=== PATIENT | male | born 1945 | race Caucasian/White ===

== ENCOUNTER → 2018-04-22 | Outpatient (CLI) | payer MEDICARE ==
[~2018-04-22] MED LIST: IOHEXOL 180 MG/ML 10 ML VIAL. IT ONE; LIDOCAINE WITH 8.4% SOD BICARB 3 ML DISP.SYRIN. INJ ONE
[2018-04-22 11:20] VITALS: BP 149/69
--- NOTE | 2018-04-22 12:30 | RAD ---
Lumbar myelogram, 04/22/2018: History: Low back pain, knee pain Under local anesthesia, aseptic conditions and fluoroscopic guidance a lumbar puncture was performed at the upper L4 level utilizing a 25-gauge Trish spinal needle. Good clear CSF flow was obtained following which 14 cc of Omnipaque 180 was injected into the thecal sac. The spinal needle was then removed and hemostasis obtained. Appropriate digital imaging was then performed. 4.8 minutes of fluoroscopy time was utilized. 16 fluoroscopic spot images were recorded. The following findings are delineated: 1. There is a mild left convexity lumbar scoliosis. 2. There is moderate circumferential narrowing of the thecal sac at L3-4. 3. There are mild anterior and posterior extradural defects at L2-3 and a mild anterior extradural defect at L4-5. 4. There is decreased opacification of the L4 nerve root sleeves bilaterally. 5. Upright lateral flexion and extension views demonstrate no spondylolisthesis or instability. CT of the lumbar spine-post myelogram, 04/22/2018: Multidetector CT imaging was performed with multiplanar reconstructions produced. The following findings are delineated: 1. At L1-2 there are mild degenerative changes involving the facet joints. There is mild posterior disc bulging and spurring. The central spinal canal is well maintained. There is mild inferior foraminal narrowing bilaterally. 2. At L2-3 there is moderate facet joint arthropathy. There is mild posterior disc bulging and marginal spurring. The thecal sac measures 12 mm in AP diameter at the midline. There is mild inferior foraminal narrowing, more so on the right. 3. At L3-4 there are extensive hypertrophic degenerative changes involving the facet joints with moderate posterior ligamentous thickening. There is moderate posterior marginal spurring which is most prominent at the midline. There is moderate broad-based posterior disc bulging. The combination of findings is causing moderate central spinal stenosis in a triangular configuration. The thecal sac measures 8 mm in AP diameter at the midline at the disc level. There is mild to moderate bilateral foraminal narrowing. 4. At L4-5 there are also extensive hypertrophic degenerative changes involving the facet joints. There is moderate posterior ligamentous thickening more so on the right. There is mild posterior disc bulging and posterior marginal spurring which is most prominent on the left. The spurring is causing moderate left foraminal encroachment and mild right foraminal encroachment. The central spinal canal is not significantly stenotic. 5. At L5-S1 there is moderate bilateral facet joint arthropathy. There is mild posterior disc bulging and marginal spurring. The posterior spurring is more prominent on the left which in conjunction with facet spurring is causing moderate left foraminal stenosis. The central spinal canal is not significantly stenotic. 6. A small 12 mm cystic appearing structure is seen in the posterior aspect of the sacral spinal canal at the S1-2 level. This does not opacify with the intrathecal contrast. This is probably a small arachnoid cyst or noncommunicating perineural root sleeve cyst. IMPRESSION: 1. Lumbar scoliosis with moderate multilevel degenerative change as described above. 2. Moderate central spinal stenosis at L3-4 due to a combination of facet joint arthropathy with posterior ligamentous thickening, disc bulging and spurring. 3. Mild to moderate foraminal narrowing at several levels, worst at L4-5 and L5-S1 on the left. PQRS Compliance Statement: One or more of the following individualized dose reduction techniques were utilized for this examination: 1. Automated exposure control 2. Adjustment of the mA and/or kV according to patient size 3. Use of iterative reconstruction technique
== END | disposition home or self-care (01) ==
LOC: RAD 10:21
PROVIDERS: ATTEND Neurological Surgery
DX: M48.061 Spinal stenosis, lumbar region without neurogenic claudication (principal); M41.86 Other forms of scoliosis, lumbar region; M48.07 Spinal stenosis, lumbosacral region; M12.88 Other specific arthropathies, not elsewhere classified, other specified site; I10 Essential (primary) hypertension; E11.9 Type 2 diabetes mellitus without complications
CPT/HCPCS: 72132; 72265; Q9965

== ENCOUNTER → 2018-05-10 | Outpatient (CLI) | payer MEDICARE ==
[2018-04-22 11:20] VITALS: BP 149/69
[~2018-05-10] MED LIST changes: +ACET325T9 PO; +ASPI81TA50 PO; +ATORVASTATIN CA80 MG PO; +DICL50TA2 PO; +GLIM1TAB2 PO; +GLIM2TAB2 PO; +HYDR-3135 PO; +HYDR25TA PO; -IOHEXOL 180 MG/ML 10 ML VIAL. IT ONE; +LEVO75TA5 PO; -LIDOCAINE WITH 8.4% SOD BICARB 3 ML DISP.SYRIN. INJ ONE; +LISI-334 PO; +LUTE20TA PO; +MELA3TAB2 PO; +METF10007 PO; +MULT1TAB52 PO; +ROPI1TAB PO; +TAMS0.4C2 PO
--- NOTE | 2018-05-10 13:52 | EKG ---
[facility] [address] [place] [address] Test Date: 2018-05-10 Test Time: 14:00:22 Pat Name: ZULEYMA LINDSAY Department: Room: Gender: Insurance Service Representative: [facility] : 1945 Requested By: GRISELDA SILVA Order Number: [id number] Reading MD: Gurmeet Jacob MD Measurements Intervals [place] Rate: 88 P: 31 NE: 176 QRS: -37 QRSD: 90 T: 4 QT: 336 QTc: 410 Interpretive Statements SINUS RHYTHM NON-SPECIFIC ST/T CHANGES Electronically Signed On 05-10-2018 14:35:15 APPLICATIONS TRAINER by Gurmeet Jacob MD
[2018-05-10 15:17] LABS: BASO % 1 % (0-3); EOS # 0.2 x10^3/uL (0.0-0.7); EOS % 3 % (0-3); HEMATOCRIT 40.6 % (39.0-53.0); HEMOGLOBIN 13.9 g/dL (13.0-17.5); LYMPH # 1.7 x10^3/uL (1.0-4.8); LYMPH % 21 % (24-48); MEAN CORPUSCULAR HEMOGLOBIN 32 pg (25-35); MEAN CORPUSCULAR HGB CONC 34 g/dL (31-37); MEAN CORPUSCULAR VOLUME 94 fL (79-100); MONO # 0.6 x10^3/uL (0.0-1.1); MONO % 8 % (0-9); NEUT # 5.6 x10^3uL (1.8-7.7); NEUT % 68 % (31-73); PLATELET COUNT 270 x10^3/uL (140-400); RED BLOOD COUNT 4.33 x10^6/uL (4.30-5.70); RED CELL DISTRIBUTION WIDTH 13.9 % (11.5-14.5); WHITE BLOOD COUNT 8.3 x10^3/uL (4.0-11.0)
[2018-05-10 15:52] LABS: ALBUMIN 3.7 g/dL (3.4-5.0); ALBUMIN/GLOBULIN RATIO 0.9 (1.0-1.7); CALCIUM 9.6 mg/dL (8.5-10.1); CREATININE 0.9 mg/dL (0.7-1.3); GFR 83.4; POTASSIUM 4.2 mmol/L (3.5-5.1); TOTAL BILIRUBIN 0.2 mg/dL (0.2-1.0); TOTAL PROTEIN 7.6 g/dL (6.4-8.2)
[2018-05-11 02:16] LABS: HEMOGLOBIN A1C 6.7 % (4.8-5.6)
== END | disposition home or self-care (01) ==
LOC: SURGPAT 12:43
PROVIDERS: ATTEND Neurological Surgery
DX: Z01.818 Encounter for other preprocedural examination (principal); M48.062 Spinal stenosis, lumbar region with neurogenic claudication
CPT/HCPCS: 36415; 80053; 83036; 85025; 87641; 93005

== ENCOUNTER 2018-05-20 07:13 | Observation (INO) | payer MEDICARE ==
[2018-05-20] VITALS (10 sets, daily range): BP systolic 108–120; BP diastolic 52–68
[~2018-05-20] VITALS: Ht 170.2 cm; Wt 111.7 kg
--- NOTE | 2018-05-20 07:07 | PREOP HP ---
DATE OF SERVICE: 05/20/2018 DATE OF SURGERY: 05/20/2018 HISTORY OF PRESENT ILLNESS: He is a pleasant 72-year-old who has low back and left greater than right leg pain, which radiates to the thighs and knees. The problem has been present for a year. The more active he becomes the more his pain increases. He rates his pain as a 4/10. Standing increases his pain. Sitting helps. He takes diclofenac, which he says does help him. PAST MEDICAL HISTORY: Hypertension, diverticulosis, metabolic syndrome, arthritis. PAST SURGICAL HISTORY: Tonsillectomy in 3, appendectomy in 1961, mandibular resection in 1966, nasal polyp removal in 1981, tennis elbow procedure in 1983, prostate resection in 2002, sigmoid colon resection in 2003, Hallie fundoplication in 2010, laminectomy L4-L5 in 07/2012, left total knee in 02/2016, right total knee in 04/2016. FAMILY HISTORY: Cancer, heart disease and spine problems. SOCIAL HISTORY: The patient is retired, and has 2 children. He exercises daily by walking. He has no current or past history of smoking. He consumes alcohol 1-2 times per year. ALLERGIES: BANDAGE DRESSINGS AND VOLTAREN. CURRENT MEDICATIONS: Lisinopril, simvastatin, levothyroxine, Krill oil, vitamin B12, vitamin C, vitamin D, aspirin, potassium gluconate, L-glutamine, multivitamins, Tylenol, [place], metformin, metronidazole, ibuprofen, and diclofenac. REVIEW OF SYSTEMS: A 12-point review of systems was obtained and is noncontributory except that mentioned above. PHYSICAL EXAMINATION: NEUROSURGERY EXAMINATION: GENERAL APPEARANCE: Alert, pleasant, no acute distress. HEAD: Normocephalic, atraumatic. SKIN: Warm and dry. MUSCULOSKELETAL: Lumbar paraspinal muscle bulk is normal, restricted range of motion of the lumbar spine, ohwy-yc-eovivdeg tenderness of lower lumbar spine with palpation, normal range of motion of the lower extremities bilaterally. EXTREMITIES: No clubbing, cyanosis or edema. NEUROLOGIC: Alert and oriented x 3, normal recent and remote memory, strength 5/5 in bilateral lower extremities, sensory was intact to light touch in the lower extremities bilaterally, reflexes were absent at the knees and ankles. Negative straight leg raising bilaterally, normal gait. IMAGING: I reviewed a lumbar myelogram and post-myelogram CT scan. On that study, there are abnormalities that are largely centered at L3-L4. There is lumbar spinal stenosis at L3-L4, which appears to worsen when compared to previous study. This stenosis at this level appears to be due to hypertrophic facets and thickened ligamentum flavum. ASSESSMENT/ PLAN: The patient is developing increasing low back pain along with pain, which radiates into his thighs and knees. I suspect the problem is related to the stenosis at L3-L4. I recommended bilateral lumbar microdecompressive surgery at this level. I discussed with him the surgery and the risks involved. He understands. He would like to go ahead. We will make the arrangements. GRISELDA SILVA MD DR: NIKKO/fitz JOB#: [id number] / [id number] ANDREW
[~2018-05-20 07:13] MED LIST changes: +BUPIVAC MPF-EPI 0.5%-1:200000 30 ML VIAL. ONE; +GELATIN SPONGE SIZE 100. ONE; +IV RINGERS,LACTATED 1000ML 1,000 ML IV SCH; +KETOROLAC 60 MG/2 ML INJ FOR OR. ONE; +LIDOCAINE 1% PF 2 ML VIAL. ID PRN; +MORPHINE SULFATE 2 MG/ML VIAL. IV PRN; +ONDANSETRON PF 4 MG/2 ML VIAL. IV PRN; +PROCHLORPERAZINE 10 MG/2 ML VIAL. IV PRN; +THROMBIN TOPICAL 20,000 UNIT SPRAY.SYRN KIT TP ONE; +fentaNYL PF VIAL 100 MCG/2 ML VIAL IV PRN
[2018-05-20] MEDS ORDERED: DEXAMETHASONE SOD PHOS 20 MG/5 ML VIAL. ONE (08:15)
[2018-05-20] MEDS ORDERED: ePHEDrine PF IN SALINE 50 MG/5 ML DISP.SYRIN IV ONE (08:15)
[2018-05-20] MEDS ORDERED: SCOPOLAMINE 1.5MG PATCH. TD ONE (08:15)
[2018-05-20] MEDS ORDERED: ONDANSETRON PF 4 MG/2 ML VIAL. ONE (08:15)
[2018-05-20] MEDS ORDERED: LIDOCAINE 2% PF Vial for OR 5 ML VIAL. ONE (08:15)
[2018-05-20] MEDS ORDERED: PROPOFOL 20 ML IV ONE (08:15)
[2018-05-20] MEDS ORDERED: PROPOFOL 50 ML IV ONE ×2 (08:16→10:07)
[2018-05-20] MEDS ORDERED: fentaNYL PF VIAL 100 MCG/2 ML VIAL ONE (08:16)
[2018-05-20] MEDS ORDERED: ROCURONIUM 50 MG/5 ML VIAL. ONE (08:16)
[2018-05-20] MEDS ORDERED: REMIFENTANIL 2 MG VIAL. IV ONE (08:17)
[2018-05-20] MEDS ORDERED: SUCCINYLCHOLINE 200 MG/10 ML VIAL. ONE (08:54)
[2018-05-20] MEDS ORDERED: FAMOTIDINE 20 MG/2 ML VIAL ONE (09:14)
[2018-05-20] MEDS ORDERED: GLYCOPYRROLATE 1 MG/5 ML VIAL. ONE (09:25)
[2018-05-20] MEDS ORDERED: NEOSTIGMINE METHYLSULFATE 5 MG/5 ML SYRINGE. ONE (09:25)
[2018-05-20] MEDS: BACITRACIN 50,000 UNIT in IV NORMAL SALINE 1000ML BAG 1,000 ML IRR ONE ×2 (09:32→09:42)
[2018-05-20] MEDS ORDERED: DESFLURANE > 120 MINUTES IH ONE (09:52)
[2018-05-20] MEDS ORDERED: DICLOFENAC POTASSIUM 50 MG PO SCH (12:15)
[2018-05-20] MEDS ORDERED: NON FORMULARY ITEM (Glimepiride 1 TAB) PO SCH (12:15)
[2018-05-20] MEDS ORDERED: fentaNYL PF VIAL 100 MCG/2 ML VIAL IV PRN (12:15)
[2018-05-20] MEDS ORDERED: CALCIUM CARBONATE 500 MG TAB.CHEW PO PRN (12:15)
[2018-05-20] MEDS ORDERED: MAG HYDROX/ALUMINUM HYD/SIMETH 30 ML ORAL.SUSP PO PRN (12:15)
[2018-05-20] MEDS ORDERED: diphenhydrAMINE HCL 25 MG CAPSULE PO PRN (12:15)
[2018-05-20] MEDS ORDERED: NALOXONE 0.4 MG/ML VIAL. IV PRN (12:15)
[2018-05-20] MEDS ORDERED: NON FORMULARY ITEM (Melatonin 10 MG) PO SCH (12:15)
[2018-05-20] MEDS ORDERED: MAGNESIUM HYDROXIDE 2,400 MG/30 ML ORAL.SUSP. PO PRN (12:15)
[2018-05-20] MEDS ORDERED: DEXTROSE 50% 25 GM / 50ML DISP.SYRIN. IV PRN (12:15)
[2018-05-20] MEDS ORDERED: ACETAMINOPHEN 325 MG TABLET. PO PRN (12:15)
[2018-05-20] MEDS ORDERED: 0.9 % SODIUM CHLORIDE 10 ML DISP.SYRIN. IV PRN (12:15)
[2018-05-20] MEDS: HYDROmorphone 2 MG/ML VIAL IV PRN ×3 (12:21→12:49)
[2018-05-20] MEDS ORDERED: HYDROcodone/APAP 10/325 1 TAB TABLET PO PRN (12:30)
[2018-05-20] MEDS: POTASSIUM CL 20MEQ-0.45% NACL 1,000 ML IV SCH (13:04)
[2018-05-20] MEDS: rOPINIRole 1 MG TABLET. PO SCH ×2 (14:00→20:53)
[2018-05-20] MEDS: METHOCARBAMOL 750 MG TABLET PO SCH ×2 (14:12→20:53)
[2018-05-20] MEDS: HYDROcodone/APAP 10/325 1 TAB TABLET PO PRN ×2 (14:14→20:10)
[2018-05-20] MEDS: GLIMEPIRIDE 2 MG TABLET. PO SCH (16:47)
[2018-05-20] MEDS: metFORMIN 500 MG TABLET PO SCH (16:47)
[2018-05-20] MEDS: DOCUSATE SODIUM 100 MG CAPSULE. PO SCH (20:53)
[2018-05-20] MEDS ORDERED: hydrOXYzine PAMOATE 25 MG CAPSULE PO SCH (21:00)
[2018-05-20] MEDS ORDERED: ATORVASTATIN CALCIUM 40 MG TABLET. PO SCH (21:00)
[2018-05-21] MEDS: HYDROcodone/APAP 10/325 1 TAB TABLET PO PRN ×2 (02:13→08:06)
[2018-05-21] MEDS: POTASSIUM CL 20MEQ-0.45% NACL 1,000 ML IV SCH (02:20)
[2018-05-21 02:55] VITALS: BP 97/48
[2018-05-21 06:31] VITALS: BP 108/57
[2018-05-21] MEDS ORDERED: LEVOTHYROXINE 75 MCG TABLET PO SCH (07:00)
[2018-05-21] MEDS: metFORMIN 500 MG TABLET PO SCH (08:06)
[2018-05-21] MEDS: GLIMEPIRIDE 2 MG TABLET. PO SCH (08:09)
[2018-05-21] MEDS: DOCUSATE SODIUM 100 MG CAPSULE. PO SCH (08:10)
[2018-05-21] MEDS: METHOCARBAMOL 750 MG TABLET PO SCH (08:10)
[2018-05-21] MEDS ORDERED: TAMSULOSIN 0.4 MG CAP.ER.24H. PO SCH (09:00)
[2018-05-21] MEDS ORDERED: NON FORMULARY ITEM (Lutein 20 MG) PO SCH (09:00)
[2018-05-21] MEDS ORDERED: MULTIVITAMIN with MINERAL TABLET. PO SCH (09:00)
[2018-05-21] MEDS ORDERED: LISINOPRIL 20 MG TABLET PO SCH (09:00)
[2018-05-21] MEDS ORDERED: ASPIRIN ENTERIC COATED 81 MG TABLET.DR. PO SCH (09:00)
[2018-05-21 10:28] VITALS: BP 109/59
--- NOTE | 2018-05-21 11:27 | DISCH ---
DISCHARGE INSTRUCTIONS Condition on Discharge Condition on Discharge: Stable Activity After Discharge Activity Instructions for Disc: Activity as tolerated, Avoid exertion, Progressive ambulation Other activity instructions: Do not drive for at least one week Bathing Instructions: Shower-keep dressing dry, No Tub Bath until see Lifting Instructions after Dis: No heavy lifting, No pulling or pushing, Do not lift >10 pounds Exercise Instruction after Dis: Exercise per therapy, Progress as tolerated Driving Instructions after Dis: Other, see below Diet after Discharge Diet after Discharge: Diabetic No Calorie Level Swallowing Supervision: None needed Wound Incision Care Wound/Incision Care: Ice to area for comfort, Keep wound/cast CDI, May get incision wet Other wound/incision instructi: 48 hours after surgery, remove dressing and replace if needed Wound Care Equipment: Dressings Checks after Discharge Checks after discharge: Check blood press - daily, Check blood sugar, ac/hs Contacting the after DC Call your doctor for: Concerns you may have Follow-Up Follow Up With: Dr Mclain's nurse in 10-14 days, Treatment/Equipment after DC Adaptive Equipment Issued: GRISELDA Liu MD May 21, 2018 11:27
[2018-05-21] MEDS ORDERED: METH750T2 PO (11:29)
[2018-05-21] MEDS ORDERED: DOCU-109 PO (11:29)
--- NOTE | 2018-05-24 18:07 | PATHOLOGY ---
[facility] Accession Number: [id number] . 01 Material submitted: . PART A: LUMBAR DECOMPRESSION PART B: LIPOMA . 01 Clinical history: . Lumbar stenosis with neurogenic claudication. . 02 Diagnosis: A. Segments of fibrocartilaginous, fibroadipose, and skeletal muscle tissue and bone, lumbar decompression: - Degenerative changes of fibrocartilaginous tissue. . B. Segments of fibroadipose tissue, site unspecified: - Lipoma. (JPM:puja; 05/24/2018) QMS/05/24/2018 . 02 Comment: Sections of the lumbar decompression show no evidence of an acute discitis or malignancy. . Sections of the "lipoma" reveal segments of fibroadipose tissue consistent with lipoma. There is no evidence of malignancy. (JPM:puja; 05/24/2018) . 02 Electronically signed: . Gaston Lawson MD, Pathologist NPI- [id number] . 01 Gross description: . A. Received in formalin labeled "CarlosAristeo bains, lumbar decompression" is a 4.8 x 4.6 x 0.9 cm aggregate of chris pink rubbery soft tissue fragments and scant chris-white bone. String Studies Director sections are submitted in cassette A1 following decalcification. . B. Received in formalin labeled "Carlos, Aristeo, lipoma" are multiple chris-yellow lobulated soft tissue fragments measuring in aggregate 5.7 x 5.5 x 2.5 cm. The specimen is not inked. The specimen is sectioned to reveal a chris-yellow homogeneous cut surface without hemorrhage or necrosis. String Studies Director sections are submitted in cassettes B1-B3 with two sections in each cassette. (SK; 05/20/2018) SYC/SYC . 02 Pathologist provided ICD-10: M51.36, D17.79 . 02 CPT . 417324, 938764 Specimen Comment: A courtesy copy of this report has been sent to Specimen Comment: [phone]. Specimen Comment: Report sent to [facility]formed at: [facility] [address], [place] [id number] MD Chico Quintero MD Phone: [phone] Performed at: [address] [id number] MD Gaston Lawson MD Phone: [phone]
--- NOTE | 2018-05-25 19:23 | OP ---
DATE OF SURGERY: 05/20/2018 PREOPERATIVE DIAGNOSES: 1. Lumbar spinal stenosis, L3-L4 with neurogenic claudication. 2. Soft tissue lipoma. OPERATION PERFORMED: 1. Bilateral hemilaminotomies with decompression of dura and nerve root, L3-L4. 2. Removal of subcutaneous lipoma, L3-L4. 3. Operation was performed with EMG monitoring, fluoroscopy, microscopic dissection. GUI DEVELOPER: Estefany Akers, assisted with the exposure, the decompressive surgery as well as the closure. OPERATIVE INDICATIONS: The patient is a 72-year-old man who developed intractable back and bilateral leg pain and was found to have stenosis at L3-L4. He failed conservative measures. On imaging studies, he had the above mentioned findings. I recommended lumbar microsurgery. I spoke to him about the surgery and the risks involved. He understood and wished to go ahead. DESCRIPTION OF PROCEDURE: Following general endotracheal anesthesia, the patient was positioned prone on the James table. Lumbar region was prepped and draped in standard fashion. LISBETH hose and AV impulse boots were applied for DVT prophylaxis. A microscope was draped. Fluoroscopy was draped and brought into the field. Monitoring was established. A midline posterior incision was made directly over the L3-L4 interspace and dissected down through skin and subcutaneous tissue, reflected the paraspinal muscles beginning first on the left side, placing a [place] micro disk retractor, I brought in the microscope and the remainder of surgery done with a microscope using microscopic technique. I burred down a generous hemilaminotomy and then grasped and began to peel away the very thickened ligamentum flavum, which was densely scarred to the underlying dura. I worked methodically and carefully and removed as much of the ligament as was safely possible, which well decompressed the entire region. I did perform a generous partial foraminotomy with both the high speed air drill as well as the 2.5 mm Fehling Kerrison. I did palpate the disk, which was bulging posteriorly slightly, but very firm and no diskectomy was warranted. I then went to the right side in a similar fashion, drilled a very generous hemilaminotomy, peeled away the very thickened ligamentum flavum performing a partial foraminotomy. The scar on this site was not nearly as severe. Again, retracted the root medially. There were few epidural veins, I coagulated the disk was bulging slightly, but very firm, no diskectomy was warranted. I did use small amounts of bone wax as well as a bipolar cautery and obtained excellent hemostasis. I removed the retractor and obtained excellent hemostasis and then closed the fascia with absorbable sutures. There was a lipoma present in the subcutaneous tissue, centered and medially and toward the right side and I gently dissected around this and removed the lipoma. I handed this off the field. I then closed the wound with absorbable sutures and obliterated the disk space and then closed the skin with 4-0 subcuticular stitch. The operation went very well and the patient was taken to the recovery room in excellent condition. I was quite pleased with the surgery. GRISELDA SILVA MD DR: NIKKO/fitz JOB#: [id number] / [id number]
== END 2018-05-21 11:55 | disposition home or self-care (01) ==
LOC: SURG 07:13 → 4 SOUTHEST 12:15
PROVIDERS: ADMIT Neurological Surgery; ATTEND Neurological Surgery
DX: M48.062 Spinal stenosis, lumbar region with neurogenic claudication (principal); I10 Essential (primary) hypertension; E88.81 Metabolic syndrome and other insulin resistance; D17.9 Benign lipomatous neoplasm, unspecified; Z90.49 Acquired absence of other specified parts of digestive tract
CPT/HCPCS: 63047; 76000; 82962; 88304; 88311; 97116; 97162; 97530; A7015; G0378; G0379; G8978; G8979; G8980; J0330; J0690; J1100; J1170; J1885; J2001; J2270; J2405; J2704; J2710; J3010; J3490; J7030; J7120